=== PATIENT | male | born 1940 | race Caucasian/White ===

== ENCOUNTER 2020-08-05 14:16 | Emergency (ER) | payer MEDICARE ==
[~2020-08-05] VITALS: Ht 172.7 cm; Wt 81.6 kg
[2020-08-05 16:13] VITALS: BP 135/82
== END 2020-08-05 16:17 | disposition home or self-care (01) ==
LOC: ER 14:43
DX: S00.83XA Contusion of other part of head, initial encounter (principal); W18.39XA Other fall on same level, initial encounter; Y92.008 Other place in unspecified non-institutional (private) residence as the place of occurrence of the external cause; I10 Essential (primary) hypertension; E11.9 Type 2 diabetes mellitus without complications; E78.5 Hyperlipidemia, unspecified
CPT/HCPCS: 70450; 72125; 99283

== ENCOUNTER 2023-06-08 20:54 | Emergency (ER) | payer MEDICARE ==
[~2023-06-08] VITALS: Ht 165.1 cm; Wt 85.7 kg
[2023-06-08] MEDS ORDERED: ACETAMINOPHEN 325 MG TAB PO ONE (21:15)
[2023-06-08] MEDS ORDERED: ACETAMINOPHEN 325 MG TAB ONE (21:21)
[2023-06-08] MEDS ORDERED: TYLENOL325 MG PO (22:02)
[2023-06-08 22:17] VITALS: BP 193/68; PULSE 63; RESP 18; TEMP 97.9; O2SAT 98
== END 2023-06-08 22:17 | disposition home or self-care (01) ==
LOC: FSED 20:57
DX: M79.672 Pain in left foot (principal); M79.671 Pain in right foot; M77.32 Calcaneal spur, left foot; M77.31 Calcaneal spur, right foot; M72.2 Plantar fascial fibromatosis; R60.9 Edema, unspecified; I10 Essential (primary) hypertension; E11.9 Type 2 diabetes mellitus without complications; E78.5 Hyperlipidemia, unspecified
CPT/HCPCS: 99283

== ENCOUNTER 2024-01-05 13:47 | Inpatient (IN) | payer MEDICARE ==
[~2024-01-05] VITALS: Ht 172.7 cm; Wt 74.4 kg
[~2024-01-05 13:47] MED LIST: CLEOCIN HCL300 MG PO; MELOXICAM7.5 MG PO; TYLENOL325 MG PO
[2024-01-05 14:10] VITALS: TEMP 97.7
[2024-01-05] MEDS: SODIUM CHLORIDE 0.9% 500ML 500 ML IV STA (14:36)
[2024-01-05] MEDS: ONDANSETRON HCL INJ 2MG/ML 2ML 2 MG/ML VIAL IV ONE (14:36)
[2024-01-05] MEDS: KETOROLAC TROMETHAMINE 30 MG/ML VIAL IV ONE (14:37)
[2024-01-05] MEDS ORDERED: ADULT GLYCERIN1 EACH PR (15:13)
[2024-01-05] MEDS ORDERED: MAGNESIUM CITR296 ML PO (15:13)
[2024-01-05] MEDS ORDERED: FLEET ENEMA133 ML PR (15:13)
[2024-01-05] MEDS ORDERED: SODIUM CHLORIDE FLUSH 10 ML SYR INJ PRN (16:15)
[2024-01-05] MEDS ORDERED: DEXTROSE 50% SYRINGE 50 ML IV PRN (16:15)
[2024-01-05] MEDS ORDERED: SOD PHOSPHATE/SOD BIPHOSPHATE ENEMA 132 ML BTL PR PRN (16:30)
[2024-01-05] MEDS ORDERED: ENALAPRILAT IV INJ 1.25 MG/ML VIAL IV PRN (16:30)
[2024-01-05] MEDS ORDERED: DIPHENHYDRAMINE HCL INJ 50 MG/ML VIAL IV PRN (16:30)
[2024-01-05] MEDS: INSULIN REGULAR, HUMAN 100 UNIT/1 ML SQ SCH (16:30)
[2024-01-05 16:43] VITALS: PULSE 74; RESP 16
[2024-01-05] MEDS ORDERED: MICARDIS20 MG PO (18:37)
[2024-01-05] MEDS ORDERED: GLIPIZIDE-METF1 EAC2 (18:40)
[2024-01-05] MEDS ORDERED: ATORVASTATIN CA10 MG PO (18:47)
[2024-01-05] MEDS ORDERED: ATORVASTATIN CA40 MG PO (18:51)
[2024-01-05] MEDS ORDERED: TELMISARTAN-HC1 EAC1 (18:57)
[2024-01-05 19:28] VITALS: BP 154/69; PULSE 59; RESP 18; TEMP 97.8; O2SAT 100
[2024-01-05 20:00] VITALS: BP 154/69; PULSE 59; RESP 18; TEMP 97.8; O2SAT 100
[2024-01-05] MEDS: LACTATED RINGER'S 1,000 ML IV SCH (20:28)
[2024-01-05] MEDS: FAMOTIDINE 20 MG/2 ML VIAL IV SCH (20:29)
[2024-01-05] MEDS: CIPROFLOXACIN 400 MG/D5W 200ML 200 ML IV SCH (20:29)
[2024-01-05] MEDS: METRONIDAZOLE 500MG/NS 100ML 100 ML IV SCH (22:33)
[2024-01-05 23:31] VITALS: BP 125/59; PULSE 56; RESP 18; TEMP 98.1; O2SAT 100
[2024-01-06] VITALS (9 sets, daily range): BP systolic 101–154; BP diastolic 56–75; PULSE 52–104; RESP 18–19; TEMP 97.3–98.5; O2SAT 93–100
[2024-01-06 07:08] LABS: BASOPHILS % 0.5 % (0.0-1.0); EOSINOPHILS # (AUTO) 0.1 (0.0-0.4); EOSINOPHILS % 1.2 % (0.0-6.0); HEMATOCRIT 33.4 % (38.2-49.6); HEMOGLOBIN 11.1 g/dL (14.0-18.0); LYMPHOCYTES # (AUTO) 1.3 (1.0-3.2); LYMPHOCYTES % 19.4 % (18.0-39.1); MEAN CORPUSCULAR HEMOGLOBIN 31.2 pg (28-32); MEAN CORPUSCULAR HGB CONC 33.2 g/dL (31-35); MEAN CORPUSCULAR VOLUME 93.8 fL (81-99); MONOCYTES # (AUTO) 0.5 (0.2-0.8); NEUTROPHILS # (AUTO) 4.7 (2.1-6.9); NEUTROPHILS % 70.7 % (38.7-80.0); PLATELET COUNT 200 x10e3/uL (140-360); RED BLOOD COUNT 3.56 x10e6/uL (4.3-5.7); RED CELL DISTRIBUTION WIDTH 13.8 % (11.7-14.4)
[2024-01-06 07:41] LABS: ANION GAP 12.4 mmol/L (8-16); CALCIUM 8.8 mg/dL (8.4-10.2); CREATININE, SERUM 1.09 mg/dL (0.72-1.25); MAGNESIUM 2.3 MG/DL (1.3-2.1); PHOSPHORUS 2.9 MG/DL (2.3-4.7); POTASSIUM 4.4 mmol/L (3.5-5.1)
[2024-01-06] MEDS: PEG (High)/E-LYTE SOLN 4,000 ML BTL PO ONE (09:00)
[2024-01-06] MEDS: CIPROFLOXACIN 400 MG/D5W 200ML 200 ML IV SCH (09:01)
[2024-01-06] MEDS: ONDANSETRON HCL INJ 2MG/ML 2ML 2 MG/ML VIAL IV PRN (09:43)
[2024-01-06] MEDS: METRONIDAZOLE 500MG/NS 100ML 100 ML IV SCH (10:52)
[2024-01-07 04:00] VITALS: BP 119/58; PULSE 50; RESP 18; TEMP 97.7; O2SAT 98
[2024-01-07 05:26] LABS: HEMATOCRIT 32.1 % (38.2-49.6); HEMOGLOBIN 10.6 g/dL (14.0-18.0); MEAN CORPUSCULAR HEMOGLOBIN 31.2 pg (28-32); MEAN CORPUSCULAR VOLUME 94.4 fL (81-99); PLATELET COUNT 186 x10e3/uL (140-360); RED CELL DISTRIBUTION WIDTH 13.8 % (11.7-14.4); WHITE BLOOD COUNT 5.63 x10e3/uL (4.8-10.8)
[2024-01-07 06:38] LABS: ANION GAP 9.8 mmol/L (8-16); CALCIUM 8.5 mg/dL (8.4-10.2); CREATININE, SERUM 0.96 mg/dL (0.72-1.25); POTASSIUM 3.8 mmol/L (3.5-5.1)
[2024-01-07 07:30] VITALS: BP 136/61; PULSE 58; RESP 18; TEMP 97.7; O2SAT 94
[2024-01-07 07:59] VITALS: BP 136/61; PULSE 58; RESP 18; TEMP 97.7; O2SAT 94
[2024-01-07 09:52] LABS: EOSINOPHILS % (MANUAL) 2 % (0-7); LYMPHOCYTES % (MANUAL) 32 % (19-48); MONOCYTES % (MANUAL) 6 % (3.4-9.0); NEUTROPHILS % (MANUAL) 60 % (40-74); PLATELET ESTIMATE ADEQUATE; PLATELET MORPHOLOGY COMMENT NORMAL; RBC MORPHOLOGY COMMENT NORMAL
[2024-01-07] MEDS ORDERED: ONDANSETRON HCL 4 MG ORAL DISINTEGRATING TAB PO PRN (10:30)
[2024-01-07 11:16] VITALS: BP 162/68; PULSE 52; RESP 18; TEMP 97.9; O2SAT 100
[2024-01-07 15:45] VITALS: BP 169/70; PULSE 54; RESP 16; TEMP 98.1; O2SAT 100
[2024-01-07] MEDS ORDERED: FAMOTIDINE 20 MG TAB PO SCH (16:30)
[2024-01-07] MEDS ORDERED: CIPROFLOXACIN 500 MG TAB PO SCH (20:30)
[2024-01-07] MEDS ORDERED: METRONIDAZOLE 500 MG TAB PO SCH (22:00)
== END 2024-01-07 15:40 | disposition home or self-care (01) | DRG 389 ==
LOC: FSED 13:49 → ERHOLD 16:11 → MED/SURG 18:17
PROVIDERS: ADMIT Internal Medicine; ATTEND Internal Medicine
DX: K56.49 Other impaction of intestine (principal); K55.1 Chronic vascular disorders of intestine; K62.6 Ulcer of anus and rectum; K63.89 Other specified diseases of intestine; I10 Essential (primary) hypertension; E78.5 Hyperlipidemia, unspecified; F32.A Depression, unspecified; E11.65 Type 2 diabetes mellitus with hyperglycemia; Z59.6 Low income; Z90.49 Acquired absence of other specified parts of digestive tract; Z79.84 Long term (current) use of oral hypoglycemic drugs
CPT/HCPCS: 0223U; 36415; 74018; 74176; 80048; 81003; 82948; 83735; 84100; 85007; 85025; 85027; 99252; 99284; J1885; J2405; J7040

== ENCOUNTER → 2024-06-22 | Day surgery (SDC) | payer MEDICARE ==
[2024-06-20 12:32] LABS: BASOPHILS % 0.3 % (0.0-1.0); EOSINOPHILS # (AUTO) 0.1 (0.0-0.4); EOSINOPHILS % 0.8 % (0.0-6.0); HEMATOCRIT 37.6 % (38.2-49.6); HEMOGLOBIN 11.7 g/dL (14.0-18.0); LYMPHOCYTES # (AUTO) 1.2 (1.0-3.2); LYMPHOCYTES % 19.5 % (18.0-39.1); MEAN CORPUSCULAR HGB CONC 31.1 g/dL (31-35); MEAN CORPUSCULAR VOLUME 96.4 fL (81-99); MONOCYTES # (AUTO) 0.3 (0.2-0.8); MONOCYTES % 5.1 % (4.4-11.3); NEUTROPHILS # (AUTO) 4.5 (2.1-6.9); PLATELET COUNT 210 x10e3/uL (140-360); RED CELL DISTRIBUTION WIDTH 15.4 % (11.7-14.4); WHITE BLOOD COUNT 6.11 x10e3/uL (4.8-10.8)
[~2024-06-22] MED LIST changes: +ADULT GLYCERIN1 EACH PR; +ATORVASTATIN CA10 MG PO; +ATORVASTATIN CA40 MG PO; +DOCUSATE SODIU100 MG PO; +FAMOTIDINE20 MG PO; +FERROUS SULFAT325 MG PO; +FLEET ENEMA133 ML PR; +GLIPIZIDE-METF1 EAC2; +LIDOCAINE HCL 2% LOCAL INJ 5 ML SDV VIAL INJ ONE; +MAGNESIUM CITR296 ML PO; +MICARDIS20 MG PO; +MOTRIN200 MG PO; +PROPOFOL IV EMULSION 10 MG/ML 20 ML VIAL ONE; +TELMISARTAN-HC1 EAC1
[2024-06-22] MEDS: LACTATED RINGER'S 1,000 ML ONE (06:05)
[2024-06-22 07:30] VITALS: TEMP 97.7
[2024-06-22 08:00] VITALS: BP 172/73; PULSE 57; RESP 15; O2SAT 99
== END | disposition home or self-care (01) ==
LOC: OR 05:30
PROVIDERS: ATTEND Internal Medicine Gastroenterology
DX: D50.9 Iron deficiency anemia, unspecified (principal); D12.0 Benign neoplasm of cecum; K29.50 Unspecified chronic gastritis without bleeding; K31.A11 Gastric intestinal metaplasia without dysplasia, involving the antrum; K21.00 Gastro-esophageal reflux disease with esophagitis, without bleeding; K44.9 Diaphragmatic hernia without obstruction or gangrene; K64.8 Other hemorrhoids; I10 Essential (primary) hypertension; E78.5 Hyperlipidemia, unspecified; I34.1 Nonrheumatic mitral (valve) prolapse; Z01.810 Encounter for preprocedural cardiovascular examination; Z01.812 Encounter for preprocedural laboratory examination; Z79.84 Long term (current) use of oral hypoglycemic drugs; Z79.1 Long term (current) use of non-steroidal anti-inflammatories (NSAID); Z79.899 Other long term (current) drug therapy
CPT/HCPCS: 36415; 43239; 45385; 85025; 88305; 88342; 93005; J2003; J2704; J7121; 45378

== ENCOUNTER 2024-11-08 15:25 | Inpatient (IN) | payer MEDICARE ==
[~2024-11-08] VITALS: Ht 172.7 cm; Wt 74.4 kg
[~2024-11-08 15:25] MED LIST changes: -LIDOCAINE HCL 2% LOCAL INJ 5 ML SDV VIAL INJ ONE; -PROPOFOL IV EMULSION 10 MG/ML 20 ML VIAL ONE
[2024-11-08] MEDS: ONDANSETRON HCL INJ 2MG/ML 2ML 2 MG/ML VIAL IV STA (16:13)
[2024-11-08] MEDS: Morphine 2mg Syringe 2 MG/ML SYR IV ONE (16:14)
[2024-11-08] MEDS: FAMOTIDINE 20 MG/2 ML VIAL IV STA (16:14)
[2024-11-08] MEDS ORDERED: IOPAMIDOL 370 MG/ML 100 ML INFUS..BTL INJ ONE (17:31)
[2024-11-08 17:53] VITALS: PULSE 72; RESP 16; TEMP 98.3
[2024-11-08] MEDS ORDERED: SODIUM CHLORIDE 0.9% 1000ML 1,000 ML IV SCH (18:30)
[2024-11-08] MEDS: Morphine 4mg INJECTION 4 MG/ML INJ IV ONE (19:22)
[2024-11-08] MEDS: SODIUM CHLORIDE 0.9% 1000ML 1,000 ML IV SCH (19:23)
[2024-11-08 20:46] VITALS: BP 190/78; PULSE 72; RESP 18; TEMP 98.1; O2SAT 99
[2024-11-08 21:30] VITALS: BP 190/78; PULSE 72; RESP 18; TEMP 98.1; O2SAT 99
[2024-11-08 21:59] VITALS: BP 190/70; PULSE 72; RESP 18; TEMP 98.4; O2SAT 98
[2024-11-08] MEDS ORDERED: DEXTROSE 50% SYRINGE 50 ML IV PRN (22:00)
[2024-11-08] MEDS: HYDRALAZINE HCL 20 MG/ML VIAL IV PRN (22:05)
[2024-11-08 23:26] VITALS: BP 171/58; PULSE 80; RESP 17; TEMP 98.4; O2SAT 97
[2024-11-09] VITALS (7 sets, daily range): BP systolic 148–193; BP diastolic 61–79; PULSE 85–94; RESP 16–18; TEMP 97.4–98.6; O2SAT 96–100
[2024-11-09] MEDS: LACTATED RINGER'S 1,000 ML INJ SCH (01:37)
[2024-11-09 06:16] LABS: BASOPHILS % 0.1 % (0.0-1.0); HEMATOCRIT 39.4 % (38.2-49.6); HEMOGLOBIN 13.3 g/dL (14.0-18.0); LYMPHOCYTES # (AUTO) 0.5 (1.0-3.2); LYMPHOCYTES % 3.6 % (18.0-39.1); MEAN CORPUSCULAR HEMOGLOBIN 30.6 pg (28-32); MEAN CORPUSCULAR HGB CONC 33.8 g/dL (31-35); MEAN CORPUSCULAR VOLUME 90.6 fL (81-99); MONOCYTES # (AUTO) 1.1 (0.2-0.8); MONOCYTES % 8.4 % (4.4-11.3); NEUTROPHILS # (AUTO) 11.1 (2.1-6.9); NEUTROPHILS % 87.6 % (38.7-80.0); PLATELET COUNT 235 x10e3/uL (140-360); RED BLOOD COUNT 4.35 x10e6/uL (4.3-5.7); RED CELL DISTRIBUTION WIDTH 14.8 % (11.7-14.4); WHITE BLOOD COUNT 12.61 x10e3/uL (4.8-10.8)
[2024-11-09 06:48] LABS: ALBUMIN/GLOBULIN RATIO 1.3 (0.8-2.0); ANION GAP 19.8 mmol/L (8-16); BILIRUBIN,TOTAL 0.8 mg/dL (0.2-1.2); CALCIUM 8.5 mg/dL (8.4-10.2); CREATININE, SERUM 1.67 mg/dL (0.72-1.25); MAGNESIUM 2.2 MG/DL (1.3-2.1); POTASSIUM 3.8 mmol/L (3.5-5.1)
[2024-11-09] MEDS: INSULIN LISPRO 100 UNIT/1 ML 3ML VIAL SQ SCH (07:30)
[2024-11-09] MEDS: Morphine 2mg Syringe 2 MG/ML SYR IV PRN (08:10)
[2024-11-09 10:53] LABS: CHOL/HDL RATIO 4.8 (3.9-4.7)
[2024-11-09] MEDS ORDERED: GADOBENATE DIMEGLUMINE 1 ML IV ONE (13:04)
[2024-11-10] VITALS (7 sets, daily range): BP systolic 94–176; BP diastolic 69–84; PULSE 101–112; RESP 18–22; TEMP 97.6–98.4; O2SAT 93–99
[2024-11-10] MEDS: HEPARIN SOD (PORCINE) 5,000 UNIT/ML VIAL SC SCH (05:25)
[2024-11-10 05:59] LABS: BASOPHILS # (AUTO) 0.1 (0.0-0.1); BASOPHILS % 0.3 % (0.0-1.0); EOSINOPHILS # (AUTO) 0.1 (0.0-0.4); EOSINOPHILS % 0.5 % (0.0-6.0); HEMATOCRIT 37.2 % (38.2-49.6); HEMOGLOBIN 12.7 g/dL (14.0-18.0); LYMPHOCYTES # (AUTO) 0.4 (1.0-3.2); LYMPHOCYTES % 2.8 % (18.0-39.1); MEAN CORPUSCULAR HEMOGLOBIN 30.9 pg (28-32); MEAN CORPUSCULAR HGB CONC 34.1 g/dL (31-35); MEAN CORPUSCULAR VOLUME 90.5 fL (81-99); MONOCYTES # (AUTO) 1.3 (0.2-0.8); MONOCYTES % 8.3 % (4.4-11.3); NEUTROPHILS # (AUTO) 13.2 (2.1-6.9); NEUTROPHILS % 87.5 % (38.7-80.0); PLATELET COUNT 187 x10e3/uL (140-360); RED BLOOD COUNT 4.11 x10e6/uL (4.3-5.7); RED CELL DISTRIBUTION WIDTH 15.3 % (11.7-14.4); WHITE BLOOD COUNT 15.06 x10e3/uL (4.8-10.8)
[2024-11-10 06:11] LABS: ALBUMIN 3.3 g/dL (3.5-5.0); ALBUMIN/GLOBULIN RATIO 1.1 (0.8-2.0); ANION GAP 15.1 mmol/L (8-16); BILIRUBIN,TOTAL 1.5 mg/dL (0.2-1.2); CALCIUM 7.7 mg/dL (8.4-10.2); CREATININE, SERUM 1.15 mg/dL (0.72-1.25); MAGNESIUM 2.1 MG/DL (1.3-2.1); TOTAL PROTEIN 6.4 g/dL (6.5-8.1)
[2024-11-10 06:12] LABS: POTASSIUM 3.1 mmol/L (3.5-5.1)
[2024-11-10 09:33] LABS: BAND NEUTROPHILS % (MANUAL) 4 %; LYMPHOCYTES % (MANUAL) 2 % (19-48); MONOCYTES % (MANUAL) 10 % (3.4-9.0); NEUTROPHILS % (MANUAL) 84 % (40-74); PLATELET ESTIMATE ADEQUATE; PLATELET MORPHOLOGY COMMENT NORMAL
[2024-11-10] MEDS: POTASSIUM CHLORIDE 10MEQ/100ML 100 ML IV SCH (12:46)
[2024-11-10] MEDS: INSULIN LISPRO 100 UNIT/1 ML 3ML VIAL SQ SCH (17:04)
[2024-11-11 04:00] VITALS: BP 166/70; PULSE 100; RESP 18; TEMP 98.6; O2SAT 98
[2024-11-11 06:00] LABS: ALBUMIN 2.9 g/dL (3.5-5.0); ANION GAP 16.5 mmol/L (8-16); BILIRUBIN,TOTAL 1.1 mg/dL (0.2-1.2); CALCIUM 7.5 mg/dL (8.4-10.2); CREATININE, SERUM 1.18 mg/dL (0.72-1.25); POTASSIUM 3.5 mmol/L (3.5-5.1); TOTAL PROTEIN 5.7 g/dL (6.5-8.1)
[2024-11-11 06:09] LABS: BASOPHILS % 0.1 % (0.0-1.0); HEMATOCRIT 33.1 % (38.2-49.6); HEMOGLOBIN 11.5 g/dL (14.0-18.0); LYMPHOCYTES # (AUTO) 0.5 (1.0-3.2); LYMPHOCYTES % 3.8 % (18.0-39.1); MEAN CORPUSCULAR HEMOGLOBIN 31.1 pg (28-32); MEAN CORPUSCULAR HGB CONC 34.7 g/dL (31-35); MEAN CORPUSCULAR VOLUME 89.5 fL (81-99); MONOCYTES # (AUTO) 0.9 (0.2-0.8); MONOCYTES % 6.6 % (4.4-11.3); NEUTROPHILS # (AUTO) 11.8 (2.1-6.9); NEUTROPHILS % 89.3 % (38.7-80.0); PLATELET COUNT 182 x10e3/uL (140-360); RED CELL DISTRIBUTION WIDTH 15.4 % (11.7-14.4)
[2024-11-11 08:00] VITALS: BP 166/70; PULSE 100; RESP 18; TEMP 98.6; O2SAT 98
[2024-11-11 09:12] VITALS: BP 166/83; PULSE 108; RESP 17; TEMP 99.3; O2SAT 96
[2024-11-11 11:53] LABS: BAND NEUTROPHILS % (MANUAL) 22 %; BASOPHILS % (MANUAL) 1 % (0-1.5); LYMPHOCYTES % (MANUAL) 1 % (19-48); MONOCYTES % (MANUAL) 4 % (3.4-9.0); NEUTROPHILS % (MANUAL) 72 % (40-74)
[2024-11-11 11:54] LABS: PLATELET ESTIMATE ADEQUATE; PLATELET MORPHOLOGY COMMENT NORMAL; RBC MORPHOLOGY COMMENT NORMAL
[2024-11-11 20:00] VITALS: BP 152/72; PULSE 85; RESP 20; TEMP 97.7; O2SAT 97
[2024-11-11] MEDS: ONDANSETRON HCL INJ 2MG/ML 2ML 2 MG/ML VIAL IV PRN (21:42)
[2024-11-12] VITALS (7 sets, daily range): BP systolic 108–178; BP diastolic 57–80; PULSE 71–99; RESP 17–20; TEMP 97.4–98.8; O2SAT 95–100
[2024-11-12 08:01] LABS: BASOPHILS % 0.1 % (0.0-1.0); HEMATOCRIT 30.1 % (38.2-49.6); HEMOGLOBIN 10.3 g/dL (14.0-18.0); LYMPHOCYTES # (AUTO) 0.4 (1.0-3.2); LYMPHOCYTES % 3.3 % (18.0-39.1); MEAN CORPUSCULAR HEMOGLOBIN 30.7 pg (28-32); MEAN CORPUSCULAR HGB CONC 34.2 g/dL (31-35); MEAN CORPUSCULAR VOLUME 89.9 fL (81-99); MONOCYTES # (AUTO) 0.9 (0.2-0.8); MONOCYTES % 7.5 % (4.4-11.3); NEUTROPHILS # (AUTO) 10.9 (2.1-6.9); NEUTROPHILS % 88.9 % (38.7-80.0); PLATELET COUNT 188 x10e3/uL (140-360); RED BLOOD COUNT 3.35 x10e6/uL (4.3-5.7); RED CELL DISTRIBUTION WIDTH 15.6 % (11.7-14.4)
[2024-11-12 08:31] LABS: ALBUMIN 2.9 g/dL (3.5-5.0); ALBUMIN/GLOBULIN RATIO 0.9 (0.8-2.0); ANION GAP 13.3 mmol/L (8-16); BILIRUBIN,TOTAL 1.3 mg/dL (0.2-1.2); CALCIUM 7.3 mg/dL (8.4-10.2); CREATININE, SERUM 1.11 mg/dL (0.72-1.25); TOTAL PROTEIN 6.2 g/dL (6.5-8.1)
[2024-11-12 08:44] LABS: POTASSIUM 3.3 mmol/L (3.5-5.1)
[2024-11-12] MEDS ORDERED: DEXTROSE 50% SYRINGE 50 ML IV PRN (12:45)
[2024-11-12] MEDS: HYDROCHLOROTHIAZIDE 25 MG TAB PO SCH (13:50)
[2024-11-12] MEDS: TELMISARTAN 40 MG TAB PO SCH (13:50)
[2024-11-12] MEDS: POTASSIUM CHLORIDE 20 MEQ TAB CR PO ONE (13:50)
[2024-11-12] MEDS: INSULIN LISPRO 100 UNIT/1 ML 3ML VIAL SQ SCH (17:16)
[2024-11-13] VITALS (9 sets, daily range): BP systolic 138–170; BP diastolic 61–84; PULSE 85–98; RESP 16–20; TEMP 98.1–99.1; O2SAT 94–99
[2024-11-13] MEDS: BISACODYL 10 MG SUPP PR ONE (00:51)
[2024-11-13 06:44] LABS: BASOPHILS % 0.1 % (0.0-1.0); EOSINOPHILS % 0.2 % (0.0-6.0); HEMATOCRIT 27.6 % (38.2-49.6); HEMOGLOBIN 9.5 g/dL (14.0-18.0); LYMPHOCYTES # (AUTO) 0.4 (1.0-3.2); LYMPHOCYTES % 4.2 % (18.0-39.1); MEAN CORPUSCULAR HEMOGLOBIN 30.7 pg (28-32); MEAN CORPUSCULAR HGB CONC 34.4 g/dL (31-35); MEAN CORPUSCULAR VOLUME 89.3 fL (81-99); MONOCYTES # (AUTO) 0.9 (0.2-0.8); MONOCYTES % 9.3 % (4.4-11.3); NEUTROPHILS # (AUTO) 8.6 (2.1-6.9); NEUTROPHILS % 85.3 % (38.7-80.0); PLATELET COUNT 197 x10e3/uL (140-360); RED BLOOD COUNT 3.09 x10e6/uL (4.3-5.7); RED CELL DISTRIBUTION WIDTH 15.6 % (11.7-14.4); WHITE BLOOD COUNT 10.09 x10e3/uL (4.8-10.8)
[2024-11-13 07:29] LABS: ALBUMIN 2.6 g/dL (3.5-5.0); ALBUMIN/GLOBULIN RATIO 0.8 (0.8-2.0); ANION GAP 13.5 mmol/L (8-16); CALCIUM 7.1 mg/dL (8.4-10.2); CREATININE, SERUM 1.1 mg/dL (0.72-1.25); MAGNESIUM 2.4 MG/DL (1.3-2.1); POTASSIUM 3.5 mmol/L (3.5-5.1); TOTAL PROTEIN 5.8 g/dL (6.5-8.1)
[2024-11-13] MEDS: FAMOTIDINE 20 MG TAB PO SCH (10:01)
[2024-11-13] MEDS: ATORVASTATIN 40 MG TAB PO SCH (10:01)
[2024-11-13] MEDS: POTASSIUM CHLORIDE 10MEQ EA PO ONE (16:02)
[2024-11-13] MEDS: FUROSEMIDE INJ 10 MG/ML 4 ML VIAL IV ONE (16:02)
[2024-11-13] MEDS: MELATONIN 5 MG TABLET PO SCH (22:04)
[2024-11-14] MEDS: BISACODYL 10 MG SUPP PR ONE (01:01)
[2024-11-14] MEDS: MAGNESIUM HYDROXIDE 30 ML UDC PO ONE ×2 (01:01→06:42)
[2024-11-14 01:41] LABS: % IRON SATURATION 15 % (15-50); IRON 25 ug/dL (65-175); TOTAL IRON BINDING CAPACITY 162 ug/dL (261-478); TRANSFERRIN 116 mg/dL (174-364)
[2024-11-14 04:50] VITALS: BP 162/79; PULSE 98; RESP 20; TEMP 100; O2SAT 96
[2024-11-14 06:29] LABS: BASOPHILS % 0.2 % (0.0-1.0); EOSINOPHILS % 0.3 % (0.0-6.0); HEMATOCRIT 26.3 % (38.2-49.6); HEMOGLOBIN 9.3 g/dL (14.0-18.0); LYMPHOCYTES # (AUTO) 0.5 (1.0-3.2); MEAN CORPUSCULAR HEMOGLOBIN 30.7 pg (28-32); MEAN CORPUSCULAR HGB CONC 35.4 g/dL (31-35); MEAN CORPUSCULAR VOLUME 86.8 fL (81-99); MONOCYTES % 9.2 % (4.4-11.3); NEUTROPHILS # (AUTO) 8.7 (2.1-6.9); NEUTROPHILS % 84.5 % (38.7-80.0); PLATELET COUNT 209 x10e3/uL (140-360); RED BLOOD COUNT 3.03 x10e6/uL (4.3-5.7); RED CELL DISTRIBUTION WIDTH 15.2 % (11.7-14.4)
[2024-11-14 07:00] LABS: ALBUMIN 2.4 g/dL (3.5-5.0); ALBUMIN/GLOBULIN RATIO 0.7 (0.8-2.0); CALCIUM 7.2 mg/dL (8.4-10.2); CREATININE, SERUM 1.3 mg/dL (0.72-1.25); TOTAL PROTEIN 5.7 g/dL (6.5-8.1)
[2024-11-14 08:37] VITALS: BP 164/77; PULSE 97; RESP 18; TEMP 98.2; O2SAT 98
[2024-11-14] MEDS: POTASSIUM CHLORIDE 20 MEQ TAB CR PO ONE ×2 (09:37→14:40)
[2024-11-14] MEDS ORDERED: METRONIDAZOLE500 MG PO (11:01)
[2024-11-14] MEDS ORDERED: CIPRO500 MG PO (11:01)
[2024-11-14] MEDS ORDERED: POTASSIUM CHLORIDE 20 MEQ TAB CR PO ONE (11:30)
[2024-11-14 11:52] VITALS: BP 176/68; PULSE 96; RESP 18; TEMP 98.6; O2SAT 98
[2024-11-14] MEDS ORDERED: POTASSIUM CHLORIDE 10MEQ EA PO STA (12:24)
[2024-11-14] MEDS: POTASSIUM CHLORIDE 10MEQ EA PO ONE ×2 (13:19→17:26)
[2024-11-14] MEDS ORDERED: POTASSIUM CHLORIDE 10MEQ EA PO ONE (13:30)
[2024-11-14 16:56] VITALS: BP 164/70; PULSE 91; RESP 18; TEMP 98.6; O2SAT 99
== END 2024-11-14 19:04 | disposition home or self-care (01) | DRG 438 ==
LOC: FSED 15:32 → ERHOLD 18:35 → MED/SURG2 20:42 → MED/SURG3 11-11 14:37
PROVIDERS: ADMIT Internal Medicine; ATTEND Internal Medicine
DX: K85.81 Other acute pancreatitis with uninfected necrosis (principal); K83.1 Obstruction of bile duct; J81.1 Chronic pulmonary edema; N17.9 Acute kidney failure, unspecified; E11.9 Type 2 diabetes mellitus without complications; I10 Essential (primary) hypertension; E78.5 Hyperlipidemia, unspecified; Z90.49 Acquired absence of other specified parts of digestive tract; Z79.84 Long term (current) use of oral hypoglycemic drugs; E87.6 Hypokalemia
CPT/HCPCS: 36415; 71045; 74018; 74177; 74183; 76705; 80048; 80053; 80061; 80076; 81003; 82607; 82746; 82948; 83540; 83690; 83735; 84132; 84466; 84484; 85025; 85045; 86301; 93005; 96372; 96374; 96375; 99284; J0360; J1308; J1644; J1938; J2270; J2405; J2470; J2543; J3480; J7030; Q9967